=== PATIENT | female | born 2000 | race Caucasian/White ===

== ENCOUNTER 2021-12-24 22:54 | Emergency (ER) | payer MEDICAID ==
[~2021-12-24] VITALS: Ht 154.9 cm; Wt 115.8 kg
[2021-12-24 23:12] VITALS: BP 132/78
== END 2021-12-25 01:20 | disposition left against medical advice (07) ==
LOC: ER 22:54
DX: Z53.21 Procedure and treatment not carried out due to patient leaving prior to being seen by health care provider (principal)
CPT/HCPCS: 93005